=== PATIENT | female | born 1970 | race Caucasian/White ===

== ENCOUNTER 2018-05-01 12:20 | Emergency (ER) | payer SELFPAY | END 2018-05-01 14:55 | disposition home or self-care (01) | LOC: ERS 12:20 | DX: I10 Essential (primary) hypertension (principal); F41.9 Anxiety disorder, unspecified; F31.9 Bipolar disorder, unspecified; Z87.891 Personal history of nicotine dependence | CPT/HCPCS: 99283 ==